=== PATIENT | female | born 1980 | race African-American/Black ===

== ENCOUNTER 2017-01-29 06:52 | Emergency (ER) | payer BC, SELFPAY ==
[2017-01-29] MEDS ORDERED: Ketorolac Tromethamine 30 MG/ML VIAL ONE (07:35)
--- NOTE | 2017-01-29 08:14 | RAD ---
TWO VIEWS CHEST: Date: 01-29-17 Comparison: 01-10-08 History: Body aches, fever, and generalized discomfort. Cough. FINDINGS: The heart and mediastinal contours are unremarkable. Lungs are clear. Osseous structures demonstrate mild mid thoracic spine degenerative change. IMPRESSION: No acute findings. POS: [facility]
== END 2017-01-29 09:15 | disposition home or self-care (01) ==
LOC: ERS 06:52
DX: B34.9 Viral infection, unspecified (principal); I10 Essential (primary) hypertension
CPT/HCPCS: 71020; 96372; 99406; J1885

== ENCOUNTER → 2019-11-25 | Day surgery (SDC) | payer BC, OTHER ==
[~2019-11-25] MED LIST: Bupivacaine PF 0.5% 30 ML VIAL ONE; Dexamethasone 20 MG/5 ML VIAL ONE; Fentanyl 100 MCG/2 ML VIAL ONE; Glycopyrrolate 0.2 MG/ML 5 ML SYRINGE ONE; HYDROcodone/Acetaminophen 5/325 mg Tablet ONE; HYDROmorphone 2 MG/ML VIAL ONE; Ketorolac Tromethamine 30 MG/ML VIAL ONE; Lidocaine 1% PF 5 ML VIAL ONE; Lidocaine 1% w/Epinephrine 1:100K 20 ML VIAL ONE; Morphine 4 MG/ML VIAL ONE; Ondansetron PF 4 MG/2 ML Vial ONE; PROPOFOL 200 MG/20 ML VIAL ONE; Rocuronium Bromide 10 MG/ML (10ML VIAL) ONE; Sodium Chloride 0.9% 30 ML ONE
[2019-11-25 13:19] LABS: #Basophils 0.1 thou/uL (0.0-0.2); #Eosinphils 0.1 thou/uL (0.0-0.7); #Lymphocytes 4.2 thou/uL (1.20-3.40); #Monocytes 0.5 thou/uL (0.11-0.59); #Neutrophils 4.1 thou/uL (1.40-6.50); %Basophils 0.8 % (0.0-1.0); %Eosinophils 1.1 % (0.0-10.0); %Lymphocytes 46.5 % (21.0-51.0); %Monocytes 5.9 % (0.0-10.0); %Neutrophils 45.7 % (42.0-75.0); Hemoglobin 14.9 g/dL (12.0-16.0); Mean Corpuscular HGB CONC 34.2 g/dL (32.0-36.0); Mean Corpuscular Hemoglobin 31.2 pg (27.0-31.0); Mean Corpuscular Volume 91.1 fL (78.0-98.0); Mean Platelet Volume 9.8 fL (7.4-10.4); Platelet Count 305 thou/uL (130-400); Red Blood Cell (RBC) Count 4.78 mill/uL (4.20-5.40)
--- NOTE | 2019-11-25 13:35 | CT ---
CT of abdomen and pelvis: 11/25/2019 COMPARISON: None HISTORY: Acute left-sided flank pain TECHNIQUE: Axial CT imaging at 5 mm intervals from lung bases through pubic symphysis without contras t. Coronal reformatted imaging obtained. FINDINGS: Lack of contrast media limits assessment of the viscera, bowel, vascular structures, and fo r lymphadenopathy. The visualized lung bases are unremarkable. No free intraperitoneal air is noted. The liver is mildly hypodense, suggesting steatosis. The liver, gallbladder, spleen, pancreas, adrena l glands, and kidneys are otherwise unremarkable. No nephrolithiasis or hydronephrosis is seen on either side. No evidence for obstructive uropathy is evident on either side. There is an irregular heterogeneously hypodense mass within the left pelvis measuring 6.9 cm in AP di mension, or 0.3 cm in transverse dimension, and 4.2 cm in craniocaudal dimension. This lesion appears to emanate from the left ovary. Limited assessment of the bowel demonstrates no evidence for obstruction or focal inflammatory change . The appendix is unremarkable. Review of the osseous structures demonstrates lower lumbar spine facet hypertrophy, most prominent on the right at L5-S1. IMPRESSION: No evidence for obstructive uropathy or nephrolithiasis. There is a nonspecific heterogen eously hypoechoic mass within the left hemipelvis which is felt to most likely be adnexal/ovarian in nature. Pelvic ultrasound is suggested.
[2019-11-25 13:49] LABS: ALT (SGPT) 10 U/L (8-55); AST (SGOT) 20 U/L (5-34); Albumin 4.5 g/dL (3.5-5.0); Alkaline Phosphatase 88 U/L (40-110); Anion Gap 18 mmol/L (10-20); BUN (Urea Nitrogen) 9 mg/dL (7.0-18.7); Bilirubin, Total 0.4 mg/dL (0.2-1.2); Calc. Creatinine Clearance 0 mL/min (70-130); Calcium 9.8 mg/dL (7.8-10.44); Carbon Dioxide 19 mmol/L (22-29); Chloride 103 mmol/L (98-107); Estimated GFR-MDRD 89; Globulin 3.7 g/dL (2.4-3.5); Glucose 133 mg/dL (70-105); Potassium 4.2 mmol/L (3.5-5.1); Protein, Total 8.2 g/dL (6.0-8.3); Sodium 136 mmol/L (136-145)
--- NOTE | 2019-11-25 15:11 | ULT ---
Pelvic sonogram transabdominal and transvaginal imaging with duplex evaluation. HISTORY: Left pelvic pain. Left adnexal mass. FINDINGS: Urinary bladder is unremarkable. Uterus is not visualized, presumed surgically absent. No free fluid evident within the pelvis. Right ovary is 3.4 cm. Normal appearance with good color and spectral Doppler flow. At the left adnexa, a well-circumscribed, lobular heterogeneous predominantly isoechoic structure wit h small peripheral cystic components is 7.9 cm length by 4.0 cm with. Vascular flow not seen within the mass. IMPRESSION : Abnormality of the left ovary with the appearance of acute ovarian torsion. Findings were called to Dr. Garcias in the emergency department at 1504 hours Code CR.
--- NOTE | 2019-11-25 16:03 | HP ---
TIME OF SERVICE: 1530 hours. REASON FOR ADMISSION: Suspected left adnexal torsion. HISTORY OF PRESENT ILLNESS: Ms. Burleson is a 39-year-old 2, para 2, status post total laparoscopic hysterectomy by Dr. Chantal Norton at [facility] approximately 1 year ago, who presents with acute onset of left lower quadrant pain this morning. She reports it is colicky and 9/10 with moderate nausea. She denies fever, chills, nausea, or vomiting. She does not report any antecedent activity that led to the onset of pain. MECHANICAL ENGINEERING DIRECTOR HISTORY: x2, hysterectomy for dysfunctional uterine bleeding. No history of endometriosis or ovarian malignancy. PAST MEDICAL HISTORY: Denies. PAST SURGICAL HISTORY: Denies except for DIAPHRAGM BUILDER surgery. ALLERGIES: DENIES. MEDICATIONS: None. SOCIAL HISTORY: Denies tobacco, alcohol, or IV drug use. FAMILY HISTORY: Noncontributory. REVIEW OF SYSTEMS: Noncontributory. PHYSICAL EXAMINATION: GENERAL: Obese, black female, no acute distress. VITAL SIGNS: Pulse is 50, respirations 18, temperature 98.2. She is status post morphine 16 mg and Toradol. HEENT: Within normal limits. LUNGS: Clear to auscultation bilaterally. HEART: Regular rate and rhythm. ABDOMEN: Soft, but she has guarding in the left lower quadrant. No CVA tenderness. PELVIC: Deferred. EXTREMITIES: No clubbing, cyanosis, or edema. LABORATORY DATA: Hematocrit of 43%, WBCs of 9, 45% neutrophils, 46% lymphocytes. Comprehensive metabolic profile reveals a creatinine of 0.86 and glucose 133, normal ALT, AST. Ultrasound reveals no free fluid in the pelvis. Normal bladder. Right ovary 3 cm. Good Doppler flow. lobular heterogeneous predominantly isoechoic structure with small peripheral cystic components measuring 8 x 4 cm in length not seen. CT scan is similar. IMPRESSION: The patient with a CT, ultrasound, and physical exam findings consistent with an acute left adnexal torsion. COVID test is pending. Will consent for laparoscopic left salpingo-oophorectomy and take to the operating room later this evening on an unscheduled basis with appropriate DVT and antibiotic prophylaxis. Job ID: [id number]
[2019-11-25 16:38] LABS: SARS-CoV-2 NAA Rapid Test Not Detected (NotDetected)
--- NOTE | 2019-11-25 18:44 | OP ---
DATE OF PROCEDURE: 11/25/2019 PREOPERATIVE DIAGNOSES: 1. Left adnexal mass. 2. Suspected torsion. POSTOPERATIVE DIAGNOSIS: 720-degree left adnexal torsion. PROCEDURE PERFORMED: Laparoscopic left salpingo-oophorectomy. ANESTHESIA: General endotracheal. ANESTHESIOLOGIST: Kenyon Reaves MD ESTIMATED BLOOD LOSS: Less than 50 mL. COMPLICATIONS: None. MEDICATIONS: 2 g Ancef preincision. DVT prophylaxis with SCDs. DRAINS: Rebolledo to gravity. OPERATIVE FINDINGS: 1. Approximately 720-degree left ovarian torsion with no obvious ovarian pathology. 2. Normal-appearing right tube and ovary. 3. Status post hysterectomy. 4. Hemostasis, clear urine. COUNTS: Correct at the end of the procedure. DISPOSITION: Recovery room in good condition. DESCRIPTION OF PROCEDURE: The patient was taken to the operating room. General endotracheal anesthesia was achieved without difficulty. She was prepped and draped in dorsal lithotomy in Catarino stirrups. A sponge stick placed in vagina. Rebolledo catheter placed, 10 mL of Marcaine injected in the superior aspect of the umbilicus and a 12-mm skin incision made. Veress needle placed in the abdominal cavity. Insufflation was carried out with carbon dioxide for a maximum pressure of 15, volume approximately 3.5 L. an 11-mm non-cutting trocar was introduced, confirmation entry into the peritoneal cavity without trauma to the underlying viscera was noted. 5-mm lateral trocars placed under direct visualization. The patient was placed in steep Trendelenburg position and the operative findings were noted. The ovary was untwisted, it was noted to still be full of blood and not consistent with viability. The LigaSure device was placed across the infundibulopelvic ligament. It was coagulated and transected. Good hemostasis was noted after transection. The scope was moved from the umbilicus to one of the lateral ports. Then a 10-mm specimen retrieval bag was placed into the abdominal cavity and the ovary placed inside the bag. It was pulled up against the anterior abdominal wall. Trocar removed at the umbilicus and the bag exteriorized. The specimen was morcellated out in the usual manner by taking care to avoid trauma to the underlying viscera. Once this was done, the abdomen was deflated of carbon dioxide. The fascia at the umbilicus reapproximated using 0 Vicryl UR5 needle. Skin reapproximated x3 using 4-0 Monocryl and Dermabond. Rebolledo catheter removed. Sponge stick removed. The patient awakened, extubated, taken to recovery room in good condition. Job ID: [id number]
--- NOTE | 2019-11-25 19:42 | RAD ---
CHEST ONE VIEW: 11/25/19 INDICATIONS: History of ICU evaluation and central line placement. COMPARISON: Prior exam dated 01/29/17. FINDINGS: There is a right IJ central venous catheter projecting in the region of the right atrium. Withdrawal of the catheter approximately 4.3 cm would put the catheter tip at the cavoatrial junction. Lungs are clear. No pleural effusion or pneumothorax is evident. No acute osseous abnormality is evident. IMPRESSION: Right IJ central venous catheter as above. POS: [facility]
== END ==
LOC: ERS 12:27 → SDC/OP 16:04
PROVIDERS: ATTEND Obstetrics & Gynecology
PROC: 0UT64ZZ Resection of Left Fallopian Tube, Percutaneous Endoscopic Approach (ICD-10-PCS; principal; 2019-11-25)
PROC: 0UT14ZZ Resection of Left Ovary, Percutaneous Endoscopic Approach (ICD-10-PCS; principal; 2019-11-25)
DX: N83.512 Torsion of left ovary and ovarian pedicle (principal); I10 Essential (primary) hypertension; F12.10 Cannabis abuse, uncomplicated; F17.210 Nicotine dependence, cigarettes, uncomplicated; Z20.828 Contact with and (suspected) exposure to other viral communicable diseases; Z90.710 Acquired absence of both cervix and uterus
CPT/HCPCS: 36415; 71045; 74176; 76856; 80053; 85025; 88305; J0690; J1100; J1170; J1885; J2270; J2405; J2704; J3010; S0020; U0002

== ENCOUNTER 2024-01-27 17:01 | Emergency (ER) | payer BC, SELFPAY ==
[2024-01-27 18:55] LABS: ALT (SGPT) 5 U/L (8-55); AST (SGOT) 13 U/L (5-34); Albumin 3.8 g/dL (3.5-5.0); Alkaline Phosphatase 66 U/L (40-110); Anion Gap 11 mmol/L (10-20); BUN (Urea Nitrogen) 8 mg/dL (7.0-18.7); Bilirubin, Total 0.7 mg/dL (0.2-1.2); Calc. Creatinine Clearance 0 mL/min (70-130); Calcium 8.8 mg/dL (7.8-10.44); Carbon Dioxide 19 mmol/L (22-29); Chloride 109 mmol/L (98-107); Estimated GFR 106; Globulin 3.3 g/dL (2.4-3.5); Glucose 107 mg/dL (70-105); Potassium 3.8 mmol/L (3.5-5.1); Protein, Total 7.1 g/dL (6.0-8.3); Sodium 135 mmol/L (136-145)
[2024-01-27 19:01] LABS: Troponin I Less than 0.010 ng/mL (< 0.028)
[2024-01-27 19:22] LABS: Hematocrit 42.5 % (36.0-47.0); Hemoglobin 14.7 g/dL (12.0-16.0); Mean Corpuscular HGB CONC 34.6 g/dL (32.0-36.0); Mean Corpuscular Hemoglobin 30.9 pg (27.0-31.0); Mean Corpuscular Volume 89.5 fL (78.0-98.0); Mean Platelet Volume 11.1 fL (7.4-10.4); Platelet Count 253 10x3/uL (130-400); RBC Distribution Width 13.4 % (11.5-14.5); Red Blood Cell (RBC) Count 4.75 mill/uL (4.20-5.40)
[2024-01-27 19:26] LABS: Burr Cells SLIGHT = 2-5 cells HPF (0-1); Lymphocytes 21 % (21-51); Monocytes 4 % (0-10); Neutrophil 69 % (42-75); Ovalocytes SLIGHT = 2-5 cells HPF (0-1); Platelet Adequacy Comment Platelets Normal; Reactive Lymphocytes 3 % (0-10)
[2024-01-27 20:21] LABS: Bacteria/HPF None Seen HPF (None Seen); Bilirubin Negative (Negative); Blood, Urine Negative (Negative); CAUTI Indications for Culture Dysuria,urgency,freq; Clarity Clear (Clear); Glucose, Urine (Dipstick) Normal (Negative); Ketone, Urine Negative (Negative); Leukocyte Negative Leu/uL (Negative); Nitrite Negative (Negative); Protein, Urine (Dipstick) Negative (Neg-Trace); RBC/HPF 0-3 HPF (0-3); Squamous Epithelial 0-3 HPF (0-3); Urobilinogen Normal mg/dL (Less than 2); WBC/HPF None Seen HPF (0-3); pH, Urine 6.5 (5.0-9.0)
[2024-01-27] MEDS ORDERED: Ketorolac Tromethamine 30 MG (1 mL) VIAL ONE (20:35)
[2024-01-27] MEDS ORDERED: Cyclobenzaprine 10 MG TAB ONE (20:36)
[2024-01-27 20:50] LABS: Urine Culture Reflex No No
== END 2024-01-27 23:10 | disposition home or self-care (01) ==
LOC: ERS 17:01
DX: M25.551 Pain in right hip (principal); F17.210 Nicotine dependence, cigarettes, uncomplicated; I10 Essential (primary) hypertension; W19.XXXA Unspecified fall, initial encounter
CPT/HCPCS: 36415; 71045; 80053; 81001; 84484; 85025; 93005; 96372; J1885